=== PATIENT | male | born 1970 | race African-American/Black ===

== ENCOUNTER 2017-10-12 09:49 | Emergency (ER) | payer OTHER ==
[~2017-10-12] VITALS: Ht 172.7 cm; Wt 139.3 kg
[2017-10-12 10:58] LABS: ABSOLUTE NEUTROPHILS 13.2 thou/uL (1.4-8.2); BASOPHILS 0.5 % (0.0-2.0); EOSINOPHILS 0.8 % (0.0-3.0); HEMATOCRIT 51.5 % (42.0-52.0); HEMOGLOBIN 17.6 gm/dL (14.0-18.0); LYMPHOCYTES 15.1 % (24.0-44.0); MCH 28.3 pg (26.0-34.0); MCHC 34.1 g/dL (28.0-37.0); MCV 82.9 fL (80.0-100.0); MONOCYTES 6.1 % (1.0-8.0); PLATELET COUNT 335 thou/uL (150-400); POLYS 77.5 % (36.0-66.0); RBC 6.21 mil/uL (4.50-6.00); RDW 15.1 % (10.5-14.5); WBC 17.1 thou/uL (4.0-11.0)
[2017-10-12 10:59] LABS: URINE BILIRUBIN NEGATIVE (Negative); URINE BLOOD NEGATIVE (Negative); URINE CLARITY SL CLOUDY; URINE COLOR YELLOW; URINE GLUCOSE-RANDOM* NEGATIVE (Negative); URINE KETONES NEGATIVE (Negative); URINE LEUKOCYTES-REFLEX NEGATIVE (Negative); URINE NITRITE-REFLEX NEGATIVE (Negative); URINE PROTEIN (DIPSTICK) 2+ (Negative); URINE SPECIFIC GRAVITY >= 1.030 (1.005-1.035); URINE UROBILINOGEN 0.2 E.U./dl (0.2-1.0)
[2017-10-12 11:09] LABS: CREATININE 0.9 mg/dL (0.7-1.3); POTASSIUM 4.3 mmol/L (3.5-5.1)
[2017-10-12] MEDS ORDERED: HYDROCHLOROTHIA25 M2 PO (11:10)
[2017-10-12] MEDS ORDERED: VITAMIN D250000 UNIT PO (11:11)
[2017-10-12] MEDS ORDERED: GLYXAMBI 25 MG1 EACH PO (11:11)
[2017-10-12 11:12] LABS: AMORPHOUS URATES Moderate /LPF (None Seen); BACTERIA-REFLEX 1-9 Few /HPF (None Seen); CASTS None Seen /LPF (None Seen); SQUAMOUS None Seen /LPF (0-3); URINE RBC None Seen /HPF (0-2)
[2017-10-12 11:13] LABS: URINE WBC-REFLEX 0-5 Rare /HPF (0-5)
[2017-10-12 11:15] LABS: ALBUMIN 3.7 g/dL (3.4-5.0); TOTAL BILIRUBIN 0.4 mg/dL (<0.1-1.0); TOTAL PROTEIN 9.6 g/dL (6.4-8.2)
[2017-10-12] MEDS ORDERED: NORCO 5-325 TA1 EACH PO (13:08)
[2017-10-12] MEDS ORDERED: ZPAK PO (13:08)
[2017-10-12] MEDS ORDERED: PEPCID20 MG PO (13:08)
[2017-10-12 14:12] VITALS: BP 152/86
== END 2017-10-12 14:00 | disposition home or self-care (01) ==
LOC: ER 09:49
PROVIDERS: Emergency Medicine
DX: J18.9 Pneumonia, unspecified organism (principal); E11.9 Type 2 diabetes mellitus without complications